=== PATIENT | female | born 1950 | race Caucasian/White ===

== ENCOUNTER 2019-06-17 13:11 | Observation (INO) | payer MEDICARE, OTHER, SELFPAY | END 2019-06-18 13:20 | disposition home or self-care (01) | PROVIDERS: Admitting Provider Obstetrics & Gynecology; Family Provider Family Medicine; Visit Provider Obstetrics & Gynecology | DX: N95.0 Postmenopausal bleeding (principal); D25.9 Leiomyoma of uterus, unspecified; I10 Essential (primary) hypertension; E11.9 Type 2 diabetes mellitus without complications; Z79.82 Long term (current) use of aspirin; Z79.4 Long term (current) use of insulin; Z87.891 Personal history of nicotine dependence; N85.01 Benign endometrial hyperplasia | CPT/HCPCS: 36415 ×2; 36416 ×3; 58260; 80053; 81003; 82962 ×4; 85025; 85027; 86850; 86900; 86901; 88307; G0378 ×97; J0690; J1815; J1885; J2001; J2704; J2710; J3010; J3490 ×2 ==

== ENCOUNTER 2020-06-25 04:31 | Emergency (ER) | payer MEDICARE, OTHER, SELFPAY ==
[2020-06-25 04:37] VITALS: BP 179/83; PULSE 87; RESP 16; TEMP 36.8; O2SAT 96; BMI 36.3
[2020-06-25 05:01] LABS: Glucose Point of Care 67 mg/dL (70-110)
--- NOTE | 2020-06-25 05:01 | PC.NURSE ---
given orange juice in the waiting room after blood glucose check of [address] Vicente verbal order
--- NOTE | 2020-06-25 06:02 | W.ED.BACK ---
HPI - Back Pain/Injury General: Chief Complaint: Back Pain/Injury Stated Complaint: lower back pain Time Seen by Provider: 06/25/20 05:40 History of Present Illness: HPI Narrative: 70-year-old female comes in complaining of pain on the left mid and upper lumbar paraspinal area slightly laterally. She denies dysuria urgency or frequency. This pain began a day and 1/2 to 2 days ago she does not remember any precipitating event it is a little bit worse when she is in the process of laying down in the exam room however other times she states position does not seem to matter. She denies any dysuria urgency or frequency denies any hematuria. She is not had any vomiting or diarrhea. She has not had any hematochezia melena hematemesis or coffee-ground emesis she denies history of renal stones. MD elicited complaint: back pain Onset (ago): day(s) Timing: constant Severity: severe Quality: stabbing and aching Location: left flank and left lower back Radiation: none Exacerbating factors: movement, supine positioning and walking Relieving factors: immobilization and sitting upright Associated symptoms: Reports difficulty walking and myalgias; Deny abdominal pain, arthralgias, chills, change in bowel habits, dysuria, fatigue, fecal incontinence, fever(s), hematuria, nausea, numbness, syncope, tingling/numbness/burning, urinary frequency, urinary urgency, vomiting or weakness Work related injury: No Review of Systems Const: Denies: fever(s), chills or fatigue ENMT: Denies: throat pain, ear or mastoid pain, nasal discharge or nasal congestion Card: Denies: syncope Resp: Denies: dyspnea, productive cough or non-productive cough GI: Denies: abdominal pain, nausea, vomiting, fecal incontinence or change in bowel habits : Denies: dysuria, urinary urgency or hematuria Skin/Breast: Denies: rash or pruritus Neuro: Reports: difficulty walking PFSH ED PFSH: Medical History (Updated 06/25/20 @ 08:22 by Valente Sheikh DO) Ganglion cyst Ganglion cyst removal: Left third toe Surgical History History of total vaginal hysterectomy 06/17/2019- performed by Dr. Thomas at [facility] Status post hysteroscopic polypectomy 05/06/2019- per Dr. Thomas at [facility] Family History Mother Diabetes Hypertension Social History Smoking and tobacco status: former smoker Alcohol intake: never Number of children: 3 Female Reproductive History: Para: 3 Spontaneous abortions: Yes (4) Physical Exam Const: COMMON NORMALS: no acute distress GENERAL APPEARANCE: cooperative and comfortable ORIENTATION/CONSCIOUSNESS: Yes awake, Yes oriented to person, Yes oriented to place and Yes oriented to time HENMT: COMMON NORMALS: normocephalic, atraumatic and hearing grossly normal bilaterally HEAD & SCALP: normocephalic and atraumatic Neck/C-Spine: COMMON NORMALS: no JVD Resp: COMMON NORMALS: normal respiratory effort, No retractions, No use of accessory muscles and clear to auscultation bilaterally AUSCULTATION: clear to auscultation bilaterally Cardio: COMMON NORMALS: no JVD, regular rate, regular rhythm and No murmurs present (Cardio) RATE: regular rate RHYTHM: regular rhythm GI: COMMON NORMALS: Soft to palpation and No hepatosplenomegaly present AUSCULTATION: Yes normoactive bowel sounds PALPATION: Yes Soft to palpation, No Tenderness to palpation present (GI), No Guarding due to palpation present (GI) and Yes No hepatosplenomegaly present Extremity: COMMON NORMALS: normal to inspection, capillary refill normal, no clubbing, cyanosis or edema, no calf tenderness and no pedal edema Neuro: SENSORIUM/ORIENTATION: Yes oriented to person, Yes oriented to place and Yes oriented to time Skin: COMMON NORMALS: no rashes or lesions noted GENERAL SKIN EXAM: no rashes or lesions noted Course Vital Signs: Vital signs: Vital Signs Temperature 98.2 F 06/25/20 04:37 Pulse Rate 76 06/25/20 06:41 Respiratory Rate 18 06/25/20 06:44 Blood Pressure 154/87 06/25/20 06:41 Pulse Oximetry 97 06/25/20 06:44 MDM - Back Pain/Injury MDM Narrative: Medical decision making narrative: Reviewed findings with patient including imaging and lab work. She has some fairly impressive constipation and very mild hypokalemia. We will hold off with any potassium supplement her hypokalemia is very minimal and concerned about causing her stomach upset with oral potassium at this point. Her back pain is somewhat relieved there is no sign of urinary source no sign of significant abdominal pathology no fracture discharged home with diclofenac and tizanidine if not improving follow-up with primary care if they worsen significantly return to the emergency room. Can use vlzc-hvx-[id number] mag citrate or milk of magnesia for relief of constipation Lab Data: Labs: Lab Results 06/25/20 06/25/20 06/25/20 Range/Units 04:56 05:39 06:20 WBC 7.5 (4.0-10.0) 10^3/ uL RBC 4.91 (4.1-5.3) 10^6/u L Hgb 14.5 (11.5-15.3) g/dL Hct 44.2 (37.0-47.0) % MCV 90.0 (81-99) fL MCH 29.5 (28.0-34.0) pg MCHC 32.8 (30.0-36.0) g/dL RDW 12.7 (12.1-15.1) % Plt Count 295 (130-400) 10^3/c mm MPV 9.6 (7.4-10.4) fL Neut % (Auto) 59.6 % Lymph % (Auto) 26.2 % [place] % (Auto) 9.5 % Eos % (Auto) 3.5 % Baso % (Auto) 0.9 % Neut # (Auto) 4.44 (1.8-7.7) 10^3/u L Lymph # (Auto) 2.0 (0.8-4.8) 10^3/u L [place] # (Auto) 0.7 (0.2-0.9) 10^3/u L Eos # (Auto) 0.3 (0.0-0.8) 10^3/u L Baso # (Auto) 0.1 (0.0-0.1) 10^3/u L Nucleated RBC % (a uto) 0 % Nucleated RBCs # 0.0 /100WBC Sodium (136-145) mmol/L Potassium (3.5-5.1) mmol/L Chloride (98-107) mmol/L Carbon Dioxide (22-29) mmol/L Anion Gap (5-19) BUN (8-23) mg/dL Creatinine (0.5-0.9) mg/dL GFR Calculation (90-130) mL/min Glucose (65-115) mg/dL POC Glucose 67 L (70-110) mg/dL Calculated Osmolal ity (285-295) mOsm/k g Calcium (8.5-10.5) mg/dL Total Bilirubin (0.15-1.2) mg/dL AST (0-32) U/L ALT (0-33) U/L Alkaline Phosphata se (35-105) IU/L Total Protein (6.6-8.7) g/dL Albumin (3.5-5.2) g/dL Globulin (1.3-4.6) g/dL Urine Color Straw (Yellow) Urine Appearance Sl hazy (CLEAR) Urine pH 7 (5-7) Ur Specific Gravit y 1.005 (1.005-1.030) Urine Protein Neg (Negative) Urine Glucose (UA) Norm (Normal) Urine Ketones Negative (Negative) Urine Blood Neg (Negative) Urine Nitrate Negative (Negative) Urine Bilirubin Neg (Negative) Urine Urobilinogen Norm (Negative) mg/dL Ur Leukocyte Sabrina ase Negative (Negative) Urine RBC 0-4 H (0-2) /hpf Urine WBC 0-4 H (0-5) /hpf Ur Squamous Epith Cells 5-10 H (0-5) /hpf Amorphous Sediment Not Reportable Urine Bacteria 1+ H (NONE) /hpf 06/25/20 06/25/20 Range/Units 06:20 07:46 WBC (4.0-10.0) 10^3/ uL RBC (4.1-5.3) 10^6/u L Hgb (11.5-15.3) g/dL Hct (37.0-47.0) % MCV (81-99) fL MCH (28.0-34.0) pg MCHC (30.0-36.0) g/dL RDW (12.1-15.1) % Plt Count (130-400) 10^3/c mm MPV (7.4-10.4) fL Neut % (Auto) % Lymph % (Auto) % [place] % (Auto) % Eos % (Auto) % Baso % (Auto) % Neut # (Auto) (1.8-7.7) 10^3/u L Lymph # (Auto) (0.8-4.8) 10^3/u L [place] # (Auto) (0.2-0.9) 10^3/u L Eos # (Auto) (0.0-0.8) 10^3/u L Baso # (Auto) (0.0-0.1) 10^3/u L Nucleated RBC % (a uto) % Nucleated RBCs # /100WBC Sodium 140 (136-145) mmol/L Potassium 3.3 L (3.5-5.1) mmol/L Chloride 101 (98-107) mmol/L Carbon Dioxide 28 (22-29) mmol/L Anion Gap 14.3 (5-19) BUN 14 (8-23) mg/dL Creatinine 0.6 (0.5-0.9) mg/dL GFR Calculation 99.4 (90-130) mL/min Glucose 84 (65-115) mg/dL POC Glucose 49 L (70-110) mg/dL Calculated Osmolal ity 290 (285-295) mOsm/k g Calcium 9.3 (8.5-10.5) mg/dL Total Bilirubin 0.3 (0.15-1.2) mg/dL AST 25 (0-32) U/L ALT 32 (0-33) U/L Alkaline Phosphata se 108 H (35-105) IU/L Total Protein 7.0 (6.6-8.7) g/dL Albumin 4.0 (3.5-5.2) g/dL Globulin 3.0 (1.3-4.6) g/dL Urine Color (Yellow) Urine Appearance (CLEAR) Urine pH (5-7) Ur Specific Gravit y (1.005-1.030) Urine Protein (Negative) Urine Glucose (UA) (Normal) Urine Ketones (Negative) Urine Blood (Negative) Urine Nitrate (Negative) Urine Bilirubin (Negative) Urine Urobilinogen (Negative) mg/dL Ur Leukocyte Sabrina ase (Negative) Urine RBC (0-2) /hpf Urine WBC (0-5) /hpf Ur Squamous Epith Cells (0-5) /hpf Amorphous Sediment Urine Bacteria (NONE) /hpf Discharge Plan Discharge Patient Disposition: Home Clinical Impression: Strain of lumbar region, Constipation Condition: Stable Prescriptions: New tizanidine 2 mg capsule 2 mg PO Q8H PRN (Reason: muscle spasticity) Qty: 20 RF: 0 diclofenac sodium 75 mg tablet,delayed release (DR/EC) 75 mg PO Q12H PRN (Reason: pain) Qty: 20 RF: 0 No Action metformin 500 mg tablet 1,000 mg PO BID RF: 0 Humulin 70/30 U-100 Insulin 100 unit/mL (70-30) suspension See Rx Instructions SUBCUT .COMPLEX RF: 0 lovastatin 10 mg tablet See Rx Instructions PO DAILY RF: 0 hydrochlorothiazide 25 mg tablet 25 mg PO DAILY RF: 0 levothyroxine 150 mcg capsule 150 mcg PO DAILY RF: 0 Discharge Orders: Discharge ED (Routine); Ordered 06/25/20 Ordered By: Valente hSeikh Referrals: Abdiel Salmon Jr, MD [Primary Care Provider] - Discharge Diet: Usual diet Discharge Activity: Increase activity as tolerated Activity Restrictions/Additional Instructions: Zybo-mxj-lzonoie laxative such as milk of magnesia or mag citrate to relieve constipation. If back pain is not improving in the next several days follow-up with primary care doctor return if has significant worsening or changes symptoms Coding Level of Care Code ED Airplane Dispatch Clerk for Luis Fwd Exam Comprehensive
--- NOTE | 2020-06-25 06:03 | XRR_ITS ---
PROCEDURE INFORMATION: Exam: XR Chest, 1 View Exam date and time: 06/25/2020 6:04 AM Age: 70 years old Clinical indication: Other: Back pain; Additional info: Dyspnea/cough TECHNIQUE: Imaging protocol: XR of the chest Views: 1 view. COMPARISON: CR Chest 1 [place] [id number] 10/23/2016 1:17 AM FINDINGS: Lungs: Unremarkable. No consolidation. Pleural space: Unremarkable. No pleural effusion. No pneumothorax. Heart/Mediastinum: Unremarkable. No cardiomegaly. Bones/joints: Degenerative change of the spine. XR/XR chest 1V portable [id number] IMPRESSION: No acute findings.
[2020-06-25 06:12] LABS: Bilirubin Urine Neg (Negative); Blood Urine Neg (Negative); Glucose Urine UA Norm (Normal); Ketones Urine Negative (Negative); Leukocyte Esterase Urine Negative (Negative); Nitrate Urine Negative (Negative); Protein Urine Neg (Negative); Specific Gravity, Urine 1.005 (1.005-1.030); Urine Appearance SL Hazy (CLEAR); Urine Color Straw (Yellow); Urobilinogen Urine Norm (Negative); pH Urine 7 (5-7)
[2020-06-25 06:13] LABS: Add Urine Culture? No; Bacteria Urine 1+ /hpf; RBC Urine 0-4 /hpf (0-2); WBC Urine 0-4 /hpf (0-5)
[2020-06-25 06:41] VITALS: BP 154/87; PULSE 76; RESP 18; O2SAT 96
[2020-06-25 06:44] VITALS: RESP 18; O2SAT 97
[2020-06-25] MEDS: morphine 4 mg/mL SDV 1 mL IVP (06:44)
[2020-06-25 06:45] LABS: Basophils # 0.1 10^3/uL (0.0-0.1); Basophils % 0.9 %; Eosinophils # 0.3 10^3/uL (0.0-0.8); Eosinophils % 3.5 %; Hematocrit 44.2 % (37.0-47.0); Hemoglobin 14.5 g/dL (11.5-15.3); Lymphocytes % 26.2 %; Mean Corpuscular HGB Conc 32.8 g/dL (30.0-36.0); Mean Corpuscular Hemoglobin 29.5 pg (28.0-34.0); Mean Platelet Volume 9.6 fL (7.4-10.4); Monocytes # 0.7 10^3/uL (0.2-0.9); Monocytes % 9.5 %; Neutrophils # 4.44 10^3/uL (1.8-7.7); Neutrophils % 59.6 %; Nucleated Red Blood Cells % 0 %; Platelet Count 295 10^3/cmm (130-400); Red Blood Count 4.91 10^6/uL (4.1-5.3); Red Cell Distribution Width 12.7 % (12.1-15.1); White Blood Count 7.5 10^3/uL (4.0-10.0)
[2020-06-25] MEDS: ondansetron 2 mg/ML SDV 2 mL 4 MG IVP (06:45)
[2020-06-25] MEDS: sodium chloride 0.9% 1,000 ML 999 ML IV (06:45)
[2020-06-25] MEDS: orphenadrine 30 mg/mL Inj 2 mL 60 MG IVP (06:45)
[2020-06-25 06:57] LABS: Alanine Aminotransferase 32 U/L (0-33); Alkaline Phosphatase 108 IU/L (35-105); Anion Gap 14.3 (5-19); Aspartate Amino Transferase 25 U/L (0-32); Blood Urea Nitrogen 14 mg/dL (8-23); Calcium 9.3 mg/dL (8.5-10.5); Carbon Dioxide 28 mmol/L (22-29); Chloride 101 mmol/L (98-107); Glomerular Filtration Rate 99.4 mL/min (90-130); Glucose 84 mg/dL (65-115); Osmolality Calculated 290 mOsm/kg (285-295); Potassium 3.3 mmol/L (3.5-5.1); Sodium 140 mmol/L (136-145); Total Bilirubin 0.3 mg/dL (0.15-1.2)
--- NOTE | 2020-06-25 07:14 | CTR_ITS ---
PROCEDURE INFORMATION: Exam: CT Abdomen And Pelvis With Contrast Exam date and time: 06/25/2020 7:16 AM Age: 70 years old Clinical indication: Abdominal pain; Prior surgery; Surgery type: Hyster; Additional info: Abd pain TECHNIQUE: Imaging protocol: Computed tomography of the abdomen and pelvis with intravenous contrast. Radiation optimization: All CT scans at this facility use at least one of these dose optimization techniques: automated exposure control; mA and/or kV adjustment per patient size (includes targeted exams where dose is matched to clinical indication); or iterative reconstruction. Contrast material: OMNI 300; Contrast volume: 95 ml; Contrast route: INTRAVENOUS (IV); COMPARISON: US pelvic with transvaginal 03/16/2019 2:09 PM RADIATION DOSE METRICS: Total DLP (mGy-cm): 1694.06 FINDINGS: Liver: Fatty infiltration of the liver. Gallbladder and bile ducts: Normal. No calcified stones. No ductal dilation. Pancreas: Normal. No ductal dilation. Spleen: Normal. No splenomegaly. Adrenal glands: Normal. No mass. Kidneys and ureters: Normal. No hydronephrosis. Stomach and bowel: Prominent colonic fecal debris. Appendix: No evidence of appendicitis. Intraperitoneal space: Unremarkable. No free air. No significant fluid collection. Vasculature: Calcified abdominal aorta. Lymph nodes: Unremarkable. No enlarged lymph nodes. Urinary bladder: Unremarkable as visualized. Reproductive: Postoperative hysterectomy. Bones/joints: Unremarkable. No acute fracture. Soft tissues: Unremarkable. CT/CT abdomen pelvis w con* [id number] IMPRESSION: 1. Fatty infiltration of the liver. 2. Large volume colonic fecal debris. Radiation Dose CTDIVOL = (mGy): DLP = 1694.06 (mGy-cm)
[2020-06-25] MEDS: iohexol 300 mg/mL 100 mL Btl IV (07:32)
[2020-06-25 07:51] LABS: Glucose Point of Care 49 mg/dL (70-110)
[2020-06-25 08:57] VITALS: BP 156/89; PULSE 86; RESP 18; O2SAT 94
== END 2020-06-25 08:58 | disposition home or self-care (01) ==
PROVIDERS: Emergency Medicine; Emergency Provider Family Medicine; PCP Family Medicine
DX: S39.012A Strain of muscle, fascia and tendon of lower back, initial encounter (principal); K59.00 Constipation, unspecified; Z79.4 Long term (current) use of insulin; Z87.891 Personal history of nicotine dependence; X58.XXXA Exposure to other specified factors, initial encounter
CPT/HCPCS: 12345; 36416; 71045; 74177; 80053; 81001; 82962; 85025; 96361; 96374; 96375; 99282; 99283; J2270; J2360; J2405; J7030; Q9967

== ENCOUNTER 2020-11-09 10:40 | Outpatient (CLI) | payer MEDICARE, OTHER, SELFPAY ==
--- NOTE | 2020-11-09 10:46 | MM_ITS ---
WS: [id number] BILATERAL DIGITAL SCREENING MAMMOGRAPHY WITH CAD CLINICAL INFORMATION: SCREENING HISTORY: Screening mammogram. No current complaints. COMPARISON: TECHNIQUE: Bilateral CC and MLO views. FINDINGS: Scattered fibroglandular densities bilaterally. Stable 7 mm ovoid asymmetry mid depth left breast is unchanged. No suspicious focal mass, asymmetry, calcifications, or architectural distortion. No evide nce of malignancy. MM/[place] [id number] IMPRESSION: BI-RADS: 2-Benign FOLLOW UP: 1 Year Follow-up Recommend return to annual screening mammography.
== END 2020-11-09 10:41 | disposition home or self-care (01) ==
LOC: RADSHAW 10:44
PROVIDERS: PCP Family Medicine; Visit Provider Family Medicine
DX: Z12.31 Encounter for screening mammogram for malignant neoplasm of breast (principal)
CPT/HCPCS: 77067

== ENCOUNTER 2022-08-28 14:34 | Outpatient (CLI) | payer MEDICARE, OTHER, SELFPAY ==
--- NOTE | 2022-08-28 14:40 | MM_ITS ---
WS: [id number] BILATERAL 3D TOMOSYNTHESIS DIGITAL SCREENING MAMMOGRAPHY WITH CAD CLINICAL INFORMATION: SCREENING HISTORY: Screening mammogram. No current complaints. COMPARISON: November 09, 2020 TECHNIQUE: Bilateral CC and MLO views. FINDINGS: Scattered fibroglandular densities bilaterally. Stable 7 mm ovoid asymmetry in the mid LEFT breast. Progressed spiculated asymmetric density measuring 10 mm mid depth RIGHT breast. This is near the 6 o r 12 clock position. This appears closer to 6 clock position on the tomographic views. Recommend furt her evaluation with diagnostic mammography and ultrasound. MM/[place] [id number] IMPRESSION: BI-RADS: 2-Benign FOLLOW UP: 1 Year Follow-up Recommend further evaluation RIGHT breast with diagnostic mammography and ultra sound.
== END 2022-08-28 14:35 | disposition home or self-care (01) ==
LOC: RAD 14:37
PROVIDERS: PCP Family Medicine; Visit Provider Family Medicine
DX: Z12.31 Encounter for screening mammogram for malignant neoplasm of breast (principal)
CPT/HCPCS: 77063; 77067

== ENCOUNTER 2022-09-26 13:09 | Outpatient (CLI) | payer MEDICARE, OTHER, SELFPAY ==
--- NOTE | 2022-09-26 13:26 | MM_ITS ---
WS: [id number] RIGHT 3D TOMOSYNTHESIS DIGITAL MAMMOGRAPHY WITH CAD CLINICAL INFORMATION: ABNORMAL MAMMO HISTORY: Additional views COMPARISON: August 28, 2022 TECHNIQUE: 3 views of the right breast were obtained. FINDINGS: Scattered fibroglandular densities of the right breast. Again seen is the small spiculated asymmetric density 10 millimeters mid depth RIGHT breast at the 6 clock position. This persists on spot nieves farhan views. Ultrasound described below. ULTRASOUND BREAST RIGHT TECHNIQUE: Ultrasound right breast focused area of concern. CLINICAL INFORMATION: ABNORMAL MAMMO FINDINGS: Ultrasound RIGHT breast at the 6:00 position at the areola. There is a hypoechoic solid lesion taller than wide measuring 9.6 x 5.4 x 6.8 mm. This has a suspicious appearance and recommend further evalu ation with ultrasound-guided biopsy. No suspicious lymph nodes in the RIGHT axilla. MM/[place] [id number] IMPRESSION: BI-RADS: 4-Suspicious Finding-Biopsy Should Be Considered FOLLOW UP: US Guided Biopsy Recommended RECOMMEND ULTRASOUND-GUIDED BIOPSY RIGHT BREAST NODULE
== END 2022-09-26 13:10 | disposition home or self-care (01) ==
PROVIDERS: PCP Family Medicine; Visit Provider Family Medicine
DX: R92.8 Other abnormal and inconclusive findings on diagnostic imaging of breast (principal); N63.15 Unspecified lump in the right breast, overlapping quadrants
CPT/HCPCS: 76642; 77061; G0279

== ENCOUNTER 2022-10-10 12:21 | Outpatient (CLI) | payer MEDICARE, OTHER, SELFPAY ==
--- NOTE | 2022-10-10 12:29 | US_ITS ---
WS: [id number] ULTRASOUND-GUIDED RIGHT BREAST BIOPSY HISTORY: LESION ON R BREAST COMPARISON: 09/26/2022 and 08/28/2022 Procedure, risks and complications are explained to the patient. Medications are reviewed. Consent is obtained. The mass in the RIGHT breast is localized with ultrasound. Mass localizes 6:00 at the areolar. Skin i s cleansed with ChloraPrep and anesthetized with 1% buffered lidocaine. Small dermatome is made. Unde r sterile conditions mass is biopsied with a 14-gauge Achieve needle. Multiple core biopsies are perf ormed. Material placed in formalin and sent to pathology for review. No complications encountered. Breast tissue marker (Bard ultrasound enhanced ribbon): Single. Patient left the radiology suite with no complications. Patient is instructed to return to [facility] concerns. US/[place] [id number] IMPRESSION: 1. Uncomplicated core needle biopsy RIGHT breast mass at 6:00. PATHOLOGY: Invasive ductal carcinoma, moderately differentiated. Breast profile will be reported separately. RECOMMENDATION: Follow-up with oncology and breast surgeon.
[2022-10-16 05:38] LABS: Breast Profile ER,PR,HER2,Ki-6 See Report
== END 2022-10-10 12:22 | disposition home or self-care (01) ==
LOC: RAD 12:22
PROVIDERS: PCP Family Medicine; Visit Provider Family Medicine
DX: C50.811 Malignant neoplasm of overlapping sites of right female breast (principal); R92.8 Other abnormal and inconclusive findings on diagnostic imaging of breast
CPT/HCPCS: 19083; 88305; 88361; 88374

== ENCOUNTER 2022-12-24 12:17 | Oncology outpatient (recurring) (ONCR) | payer MEDICARE, OTHER, SELFPAY | END 2022-12-28 23:59 | disposition home or self-care (01) | PROVIDERS: PCP Family Medicine; Visit Provider Radiology Radiation Oncology | DX: C50.811 Malignant neoplasm of overlapping sites of right female breast (principal); Z17.0 Estrogen receptor positive status [ER+]; C77.3 Secondary and unspecified malignant neoplasm of axilla and upper limb lymph nodes; Z87.891 Personal history of nicotine dependence | CPT/HCPCS: 99205 ==

== ENCOUNTER 2023-01-14 15:03 | Outpatient (CLI) | payer MEDICARE, OTHER, SELFPAY ==
--- NOTE | 2023-01-14 15:30 | XR_ITS ---
WS: [id number] SCREENING DEXA SCAN [facility] CLINICAL INFORMATION: baseline COMPARISON: 2019 FINDINGS: The L1-L4 bone mineral density measures 1.358 g/cm2. This corresponds to a T score score of 1.5 and Z score of 2.0. Left femoral neck bone mineral density measures 1.171 g/cm2. This corresponds to a T score of 1.3 and Z score of 2.0. Right femoral neck bone mineral density measures 1.141 g/cm2. This corresponds to a T score 1.1of and Z score of 1.7. Mean femoral neck bone mineral density measures 1.156 g/cm2. This corresponds to a T score of 1.2 and Z score of 1.9. XR/XR DEXA axial skeleton* [id number] IMPRESSION: Normal bone mineralization lumbar spine. Normal bone mineralization femoral nec ks. Patient's FRAX calculated 10 year probability for major osteoporotic fracture i s 7.0 % and osteoporotic hip fracture is 0.5%. Bone mineral density in the lumbar spine has increased 6.8% since 2019. Bone mineral density femoral necks increased 3.2% since 2019.
== END 2023-01-14 15:04 | disposition home or self-care (01) ==
PROVIDERS: PCP Family Medicine; Visit Provider Internal Medicine Medical Oncology
DX: C50.811 Malignant neoplasm of overlapping sites of right female breast (principal); Z78.0 Asymptomatic menopausal state
CPT/HCPCS: 77080

== ENCOUNTER 2023-01-28 13:38 | Oncology outpatient (recurring) (ONCR) | payer MEDICARE, OTHER, SELFPAY ==
--- NOTE | 2023-01-10 11:11 | N.ONRAD NP_ITS ---
Radiation Oncology Consultation Patient Name: Marbella Yeh Date of : 1950 Date of Service: 01/10/2023 Attending Physician: Arnold Link M.D. Marbella Yeh was seen in consultation this morning for consideration of adjuvant breast radiotherapy in the management of breast cancer. A bilateral screening mammogram ordered on August 28, 2022 identified a 1 cm spiculated density in the right breast. A diagnostic tomosynthesis mammogram completed on September 26, 2022 confirmed the density. Ultrasonography described a hypoechoic lesion measuring 9.6 mm x 5.4 mm x 6.8 mm. An ultrasound-guided right breast biopsy obtained on October 10, 2022 diagnosed a grade 2 invasive ductal carcinoma. The breast cancer prognostic profile reported estrogen receptor (95%) and progesterone receptor positivity (80%) but negative for HER-2 overexpression (IHC 1+; HER-2 ratio 1.6). The Ki-67 was 8%. An MRI of the breasts described the biopsy-proven enhancing mass within the right breast. A right needle-localized lumpectomy with axillary sentinel lymph node biopsy was performed by Trae Nair M.D. on November 15, 2022. The pathology report confirmed a 2 cm grade 2 invasive ductal carcinoma. All surgical margins were uninvolved by malignancy. A total of two sentinel lymph nodes were harvested with one node harboring metastatic disease. The lymph node measured 0.7 cm without extranodal extension present. The Oncotype DX breast recurrence score was 14. The patient was evaluated for adjuvant breast radiotherapy. I discussed with Ms. Yeh the [place] [employer] on Cancer staging for breast cancer and specifically the patient's pathological stage IA (T1cN1a) specific to her breast cancer diagnosis and the National Comprehensive Cancer Network Guidelines recommending adjuvant breast and regional elizabeth radiotherapy. I also reviewed the classic studies by the [place] [employer] and the Early Breast Cancer Trialists??? Collaborative Group. She is aware that these studies demonstrated an overall survival improvement in patients treated with post-mastectomy radiotherapy with extrapolation to patients electing lumpectomy. I would endorse a five week course of adjuvant right breast and regional lymph node radiotherapy. A computed tomographic radiotherapy planning scan with contrast in the treatment position will be acquired to identify the clinical tumor volumes prior to beginning treatment. The potential toxicities of breast and regional lymph node irradiation were canvassed. The patient has verbalized understanding would like to proceed as recommended. The patient's medical treatment plan was discussed with Federico Arellano M.D. Signed by: Dr. Arnold Link 01/10/2023 11:09:41 AM
--- NOTE | 2023-01-22 14:31 | ONCRAD TMN_ITS ---
Radiation Oncology Weekly Treatment Management Patient: Rao Santiago MR#: [id number] : 1950> Attending Physician: Emir Hameed Date of Service: 01/22/2023 Referring Physician(s) : Lowell Jiang M.D. Diagnosis: C50.411 - Malignant neoplasm of upper-outer quadrant of right female breast, Diagnosed 10/10/2022 (Active) Stage IA, T1c, pN1a, M0, G2, HER2 Neg, ER Pos, AL Radiotherapy to date: Course: RT Breast 2022. Treatment Site: RT [id number]. Ref. ID: R [id number], Energy: 15X/6X, Dose/Fx (cGy): 200, #Fx: 5 / 25, Dose Correction (cGy): 0, Total Dose (cGy): 1,000, Start Date: 01/16/2023, Elapsed Days: 6 Course: RT Breast 2022, Treatment Site: SCLV 50Gy, Ref. ID: [id number] 50Gy, Energy: 15X/6X, Dose/Fx (cGy): 200, #Fx: 25, Dose Correction (cGy): 0, Total Dose (cGy): 1,000, Start Date: 01/16/2023, Elapsed Days: 6 Reason for visit: The patient is being seen today as part of their regularly scheduled weekly on treatment visits to assess for acute toxicities from radiotherapy. Review of Systems: She is tolerating treatment well. She has no skin complaints. No breast pain. Performance status stable. Appetite normal. Vital Signs: Performed on 01/22/2023 1:49 PM BMI - 37.059 kg/m2 (high), Height - 66 in, Weight - 229.6 lbs, Temperature - 96.6 f, Pulse - 89 /min, Respiration - 18 /min, O2 Sat - 98 %, Pain - 0, Fatigue - 0 and BP - 144/ 85 mm(hg)(high/). Physical Exam: She has no skin reaction. No edema of the breast. She has a good range of motion in the right arm. No lymphedema. Imaging: Radiation therapy imaging related to accurate target localization (i.e. KV, MV and CBCT) was reviewed. Appropriate changes, if any, were made to ensure treatment accuracy. Plan: Continue treatment per plan. No questions. Signed by: Emir Hameed 01/22/2023 2:30:07 PM
[2023-01-25 09:37] VITALS: BP 147/81; PULSE 103; RESP 18; TEMP 35.9; O2SAT 96
[2023-01-25 09:50] LABS: Basophils # 0.1 10^3/uL (0.0-0.1); Basophils % 0.7 %; Eosinophils # 0.2 10^3/uL (0.0-0.8); Eosinophils % 2.2 %; Hemoglobin 14.9 g/dL (11.5-15.3); Lymphocytes # 1.3 10^3/uL (0.8-4.8); Lymphocytes % 17.7 %; Mean Corpuscular HGB Conc 33.9 g/dL (30.0-36.0); Mean Corpuscular Hemoglobin 30.3 pg (28.0-34.0); Mean Corpuscular Volume 89.4 fl (81-99); Mean Platelet Volume 9.2 fL (7.4-10.4); Monocytes # 0.6 10^3/uL (0.2-0.9); Monocytes % 7.8 %; Neutrophils # 5.21 10^3/uL (1.8-7.7); Neutrophils % 71.3 %; Nucleated Red Blood Cells % 0 %; Platelet Count 324 10^3/cmm (130-400); Red Blood Count 4.92 10^6/uL (4.1-5.3); Red Cell Distribution Width 13.4 % (12.1-15.1); White Blood Count 7.3 10^3/uL (4.0-10.0)
[2023-01-25 10:14] LABS: Alanine Aminotransferase 25 U/L (0-33); Albumin Level 4.1 g/dL (3.5-5.2); Alkaline Phosphatase 101 U/L (35-105); Anion Gap 15.6 (5-19); Aspartate Amino Transferase 20 U/L (0-32); Blood Urea Nitrogen 15 mg/dL (8-23); Calcium 9.7 mg/dL (8.5-10.5); Carbon Dioxide 27 mmol/L (22-29); Chloride 102 mmol/L (98-107); Globulin 2.5 g/dL (1.3-4.6); Glomerular Filtration Rate 98.8 mL/min (90-130); Glucose 86 mg/dL (65-115); Osmolality Calculated 292 mOsm/kg (285-295); Potassium 3.6 mmol/L (3.5-5.1); Sodium 141 mmol/L (136-145); Total Bilirubin 0.4 mg/dL (0.15-1.2); Total Protein 6.6 g/dL (6.6-8.7)
== END 2023-01-28 23:59 | disposition home or self-care (01) ==
PROVIDERS: Internal Medicine Medical Oncology; PCP Family Medicine; Visit Provider Specialist
DX: Z51.0 Encounter for antineoplastic radiation therapy (principal); C50.811 Malignant neoplasm of overlapping sites of right female breast; Z17.0 Estrogen receptor positive status [ER+]; Z78.0 Asymptomatic menopausal state; Z87.891 Personal history of nicotine dependence
CPT/HCPCS: 36415; 77290; 77295; 77300; 77321; 77334; 77336; 77387; 77412; 80053; 85025; 99024; 99205; 99214

== ENCOUNTER 2023-02-19 13:36 | Oncology outpatient (recurring) (ONCR) | payer MEDICARE, OTHER, SELFPAY ==
--- NOTE | 2023-01-29 14:22 | ONCRAD TMN_ITS ---
Radiation Oncology Treatment Management Note Patient Name: Marbella Yeh Date of : 1950 Date of Service: 01/29/2023 Attending Physician: Arnold Link M.D. Marbella Yeh is a 72 year-old white female diagnosed with pathological stage 1A (T1cN1a) breast cancer. A bilateral screening mammogram ordered on August 28, 2022 identified a 1 cm spiculated density in the right breast. A diagnostic tomosynthesis mammogram completed on September 26, 2022 confirmed the density. Ultrasonography described a hypoechoic lesion measuring 9.6 mm x 5.4 mm x 6.8 mm. An ultrasound-guided right breast biopsy obtained on October 10, 2022 diagnosed a grade 2 invasive ductal carcinoma. The breast cancer prognostic profile reported estrogen receptor (95%) and progesterone receptor positivity (80%) but negative for HER-2 overexpression (IHC 1+; HER-2 ratio 1.6). The Ki-67 was 8%. An MRI of the breasts described the biopsy-proven enhancing mass within the right breast. A right needle-localized lumpectomy with axillary sentinel lymph node biopsy was performed by Trae Nair M.D. on November 15, 2022. The pathology report confirmed a 2 cm grade 2 invasive ductal carcinoma. All surgical margins were uninvolved by malignancy. A total of two sentinel lymph nodes were harvested with one node harboring metastatic disease. The lymph node measured 0.7 cm without extranodal extension present. The Oncotype DX breast recurrence score was 14. The patient was evaluated for adjuvant breast radiotherapy. She has received 20 Gy of a prescribed 50 Gy delivered with a 3D conformal radiotherapy plan utilizing opposed tangential portal carlson matched to supraclavicular fossa and PAB carlson. Upon review of systems, she denied any breast complaints to radiotherapy. On physical examination, the patient weighed 229 lbs. Her temperature was 96.5 ???F and the blood pressure was 143/83 mmHg. Her pulse was 92 bpm and her respiratory rate was 18. There was no erythema within the treatment carlson of the right breast. Continue breast and regional lymph node irradiation as planned. Signed by: Dr. Arnold Link 01/29/2023 2:21:20 PM
--- NOTE | 2023-02-05 14:03 | ONCRAD TMN_ITS ---
Radiation Oncology Weekly Treatment Management Patient: Marbella Yeh MR#: [id number] : 1950> Attending Physician: Ethan Parker Date of Service: 02/05/2023 Referring Physician(s) : Lowell Jiang M.D. 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 ID: [id number], Energy: 15X/6X, Dose/Fx (cGy): 200, #Fx: 15 / 25, Dose Correction (cGy): 0, Total Dose (cGy): 3,000, Start Date: 01/16/2023, Elapsed Days: 20 RT Breast 2022, Treatment Site: SCLV 50Gy, Ref. ID: SCLV 50Gy, Energy: 15X/6X, Dose/Fx (cGy): 200, #Fx: / 25, Dose Correction (cGy): 0, Total Dose (cGy): 3,000, Start Date: 01/16/2023, Elapsed Days: 20 Reason for visit: The patient is being seen today as part of their regularly scheduled weekly on treatment visits to assess for acute toxicities from radiotherapy. Review of Systems: Patient notes a slight rash on the upper medial portion of her right breast. She is using lotion as indicated. She has mild fatigue but is able to rest as needed. Vital Signs: Performed on 02/05/2023 2:00 PM BMI ??? 36.865 kg/m2 (high), Height - 66 in, Weight ??? 228.4 lbs, Temperature - 96.9 f, Pulse - 82 /min (high), Respiration - 18 /min, O2 Sat - 97 %, Pain - 0, Fatigue - 0 and BP - 136/ 64 mm(hg). Physical Exam: Slight erythematous rash on the medial upper portion of the right breast. Skin is slightly pink with no evidence of moist desquamation or lymphedema. Imaging: Radiation therapy imaging related to accurate target localization (i.e. KV, MV and CBCT) was reviewed. Appropriate changes, if any, were made to ensure treatment accuracy. Plan: Patient has been advised that she can also apply hydrocortisone cream to the area of rash. Continue prescribed treatment. Signed by: Ethan Parker 02/05/2023 2:35:44 PM
--- NOTE | 2023-02-12 14:38 | ONCRAD TMN_ITS ---
Radiation Oncology Weekly Treatment Management Patient: Marbella Yeh MR#: [id number] : 1950> Attending Physician: Duncan Marroquin Date of Service: 02/12/2023 Referring Physician(s) : Lowell Jiang M.D. Diagnosis: C50.411 - Malignant neoplasm of upper-outer quadrant of right female breast, Diagnosed 10/10/2022 (Active) Stage IA, T1c, pN1a, M0, G2, HER2 Neg, ER Pos, [place] Radiotherapy to date: Course: RT Breast 2022, Treatment Site: RT [id number], Ref. ID: [id number], Energy: 15X/6X, Dose/Fx (cGy): 200, #Fx: 20 / 25, Dose Correction (cGy): 0, Total Dose (cGy): 4,000, Start Date: 01/16/2023, Elapsed Days: 27 RT Breast 2022, Treatment Site: SCLV 50Gy, Ref. ID: SCLV 50Gy, Energy: 15X/6X, Dose/Fx (cGy): 200, #Fx: 20 / 25, Dose Correction (cGy): 0, Total Dose (cGy): 4,000, Start Date: 01/16/2023, Elapsed Days: 27 Reason for visit: The patient is being seen today as part of their regularly scheduled weekly on treatment visits to assess for acute toxicities from radiotherapy. Review of Systems: Using OTC hydrocortisone and aloe vera moisturizer. Active with quilting. Minimal breast discomfort. Vital Signs: Performed on 02/12/2023 1:49 PM BMI - 35.832 kg/m2 (high), Height - 66 in, Weight - 222 lbs, Temperature - 96 f, Pulse - 86 /min, Respiration - 20 /min, O2 Sat - 97 %, Pain - 0, Fatigue - 0 and BP - 134/ 69 mm(hg). Physical Exam: Moderate generalized breast erythema. No desquation. Imaging: Radiation therapy imaging related to accurate target localization (i.e. KV, MV and CBCT) was reviewed. Appropriate changes, if any, were made to ensure treatment accuracy. Plan: Good tolerance of treatment. Continue treatment as planned. Signed by: Duncan Marroquin 02/12/2023 2:36:02 PM
--- NOTE | 2023-02-19 22:59 | ONCRAD TMN_ITS ---
Radiation Oncology Weekly Treatment Management/Treatment Summary Patient: Marbella Yeh MR#: [id number] : 1950> Attending Physician: Duncan Marroquin Date of Service: 02/19/2023 Referring Physician(s) : Lowell Jiang M.D. Diagnosis: C50.411 - Malignant neoplasm of upper-outer quadrant of right female breast, Diagnosed 10/10/2022 (Active) Stage IA, T1c, pN1a, M0, G2, HER2 Neg, ER Pos, [place] Radiotherapy to date: Course: RT Breast 2022, Treatment Site: RT [id number], Ref. ID: R [id number], Energy: 15X/6X, Dose/Fx (cGy): 200, #Fx: 25 / 25, Dose Correction (cGy): 0, Total Dose (cGy): 5,000, Start Date: 01/16/2023, End Date: 02/19/2023, Elapsed Days: 34 RT Breast 2022, Treatment Site: SCLV 50Gy, Ref. ID: SCLV 50Gy, Energy: 15X/6X, Dose/Fx (cGy): 200, #Fx: 25 / 25, Dose Correction (cGy): 0, Total Dose (cGy): 5,000, Start Date: 01/16/2023, End Date: 02/19/2023, Elapsed Days: 34 Reason for visit: The patient is being seen today as part of their regularly scheduled weekly on treatment visits to assess for acute toxicities from radiotherapy. Review of Systems: Overall she did well with treatment. Moderate breast erythema with thin region of moist desquamation in inframammary fold. Using Vaseline and OTC hydrocortisone. She had faigue and slept more. Quilting at home. Will see Dr. Jiang in 2 weeks. Vital Signs: Performed on 02/19/2023 2:00 PM BMI - 36.671 kg/m2 (high), Height - 66 in, Weight - 227.2 lbs, Temperature - 96.8 f, Pulse - 80 /min, Respiration - 16 /min, O2 Sat - 97 %, Pain - 0, Fatigue - 3 and BP - 126/ 72 mm(hg). Physical Exam: Imaging: Radiation therapy imaging related to accurate target localization (i.e. KV, MV and CBCT) was reviewed. Appropriate changes, if any, were made to ensure treatment accuracy. Plan: Treatment well tolerated outside of band of desquamation in inframammary fold. FU with Dr. Jiang in 2 wks. We will have her return here in [address] Hameed for skin assessment as well. Telemedicine Consent Patient seen today via Telemedicine by agreement and consent of patient. Telemedicine technology used during the visit include audio and, as available, review of images. This patient encounter is appropriate and reasonable under the circumstances given the patient???s particular presentation at this time. The patient has been advised of the potential risks and limitations of this mode of treatment (including but not limited to the absence of in-person examination) and has agreed to be treated in a remote fashion in spite of them. Any and all of the patient???s/patient???s family???s questions on this issue have been answered and I have made no promises or guarantees to the patient. The patient has also been advised to contact this office for worsening conditions or problems, and seek emergency medical treatment and/or call 911 if the patient deems either necessary. Signed by: Duncan Marroquin 02/19/2023 10:57:33 PM
--- NOTE | 2023-02-21 18:57 | N.ONRD TS_ITS ---
Radiation Oncology Treatment Summary Patient: Marbella Yeh MR#: [id number] : 1950 Age: 73 Sex: Female Dictated by: Duncan Marroquin Date of Service: 02/20/2023 Referring Physician(s) : Lowell Jiang M.D. Diagnosis: C50.411 - Malignant neoplasm of upper-outer quadrant of right female breast, Diagnosed 10/10/2022 (Active) Stage IA, T1c, pN1a, M0, G2, HER2 Neg, ER Pos, [place] Radiotherapy to Date: Course: RT Breast 2022, Treatment Site: RT [id number], Ref. ID: R [id number], Energy: 15X/6X, Dose/Fx (cGy): 200, #Fx: 25 / 25, Dose Correction (cGy): 0, Total Dose (cGy): 5,000, Start Date: 01/16/2023, End Date: 02/19/2023, Elapsed Days: 34 Course: RT Breast 2022, Treatment Site: SCLV 50Gy, Ref. ID: SCLV 50Gy, Energy: 15X/6X, Dose/Fx (cGy): 200, #Fx: 25 / 25, Dose Correction (cGy): 0, Total Dose (cGy): 5,000, Start Date:, 01/16/2023, End Date: 02/19/2023, Elapsed Days: 34 Clinical Summary: The patient tolerated RT well. She developed breast erythema and moist desquamation in the infra mammary fold. This was treated with Vaseline, hydrocortisone and Aloe Vera. She had fatigue and napped more. She remained active with quilting. Plan: End of treatment today. Continue on the above medication until the skin reaction resolves. Follow up in two weeks with Dr. Jiang and Dr. Hameed. Signed by: Duncan Marroquin>02/21/2023 6:55:57 PM <<Signature on File>>
== END 2023-02-28 23:59 | disposition home or self-care (01) ==
PROVIDERS: PCP Family Medicine; Visit Provider Radiology Radiation Oncology
DX: Z51.0 Encounter for antineoplastic radiation therapy (principal); C50.811 Malignant neoplasm of overlapping sites of right female breast; Z17.0 Estrogen receptor positive status [ER+]; C77.8 Secondary and unspecified malignant neoplasm of lymph nodes of multiple regions; L59.8 Other specified disorders of the skin and subcutaneous tissue related to radiation; R53.0 Neoplastic (malignant) related fatigue; Z79.899 Other long term (current) drug therapy
CPT/HCPCS: 77336; 77387; 77412; 99024

== ENCOUNTER 2023-03-11 10:22 | Oncology outpatient (recurring) (ONCR) | payer MEDICARE, OTHER, SELFPAY ==
--- NOTE | 2023-03-06 14:45 | ONCRAD EPV_ITS ---
Radiation Oncology Established Patient Visit Patient: Rao Tyson [id number] : 1950> Age: 73> Sex: Female> Dictated by: Emir Hameed Date of Service: 03/06/2023 Referring Physician(s) : Lowell Jiang M.D. Diagnosis: C50.411 - Malignant neoplasm of upper-outer quadrant of right female breast, Diagnosed 10/10/2022 (Active) Stage IA, T1c, pN1a, M0, G2, HER2 Neg, ER Pos, [place] Radiotherapy to Date: Course: RT Breast 2022, Treatment Site: RT [id number], Ref. ID: [id number], Energy: 15X/6X, Dose/Fx (cGy): 200, #Fx: 25 / 25, Dose Correction (cGy): 0, Total Dose (cGy): 5,000, Start Date: 01/16/2023, End Date: 02/19/2023, Elapsed Days: 34 Treatment Site: SCLV 50Gy, Ref. ID: SCLV 50Gy, Energy: 15X/6X, Dose/Fx (cGy): 200, #Fx: 25 / 25, Dose Correction (cGy): 0, Total Dose (cGy): 5,000, Start Date: 01/16/2023, End Date: 02/19/2023, Elapsed Days: 34 Current History: She completed radiation 2 weeks ago. She had moist desquamation in the inframammary area. She was asked to come in for a follow-up. She still has some tenderness of the skin but she states it is improved. She has mild discomfort in the breast itself. No other problems.: Current Complaint: None. Skin check. Vital Signs: Performed on 03/06/2023 1:58 PM BMI - 37.059 kg/m2 (high), Height - 66 in, Weight - 229.6 lbs, Temperature - 96.3 f, Pulse - 91 /min, Respiration - 18 /min, O2 Sat - 94 % (low), Pain - 0, Fatigue - 0 and BP - 148/ 81 mm(hg)(high/). Physical Exam: General: Alert and oriented x 3. No acute distress NECK: Supple without supraclavicular or jugular lymphadenopathy. LUNGS: Clear to auscultation bilaterally without rales, rhonchi or wheeze. HEART: Regular rate and rhythm, normal S1 and S2 without murmur, gallop or rub. Breast: The right breast has changes of hyperpigmentation and mild erythema with mild dry desquamation. The breast is soft and nontender and has no mass, nodularity, or induration. The inframammary area is healed and there is a new layer of skin without evidence of infection. The axilla also has a new layer of skin without any evidence of infection. No palpable lymphadenopathy. There is no lymphedema of the right upper extremity. Performance Status: ECOG 0 Lab: None pending. Pathology: Primary, c50.411 - malignant neoplasm of upper-outer quadrant of right female breast, Diagnosed 10/10/2022 (active) stage ia, t1c, pn1a, m0, g2, her2 neg, er pos, pr. Imaging: See HPI Impression: Her skin is healing as anticipated. I discussed the changes that we will continue to occur with the skin of the breast with dry desquamation and gradual resolution of the hyperpigmentation. She will call if there is not continued improvement. Otherwise follow-up in 6 months. Signed by: 03/06/2023 2:44:20 PM <<Signature on File>> Time spent with patient: CPT Code: CPT Code:
== END 2023-03-30 23:59 | disposition home or self-care (01) ==
PROVIDERS: PCP Family Medicine; Visit Provider Specialist
DX: Z51.0 Encounter for antineoplastic radiation therapy (principal); C50.811 Malignant neoplasm of overlapping sites of right female breast; Z17.0 Estrogen receptor positive status [ER+]
CPT/HCPCS: 99024; 99214

== ENCOUNTER 2023-06-10 13:24 | Outpatient (CLI) | payer MEDICARE, OTHER, SELFPAY ==
--- NOTE | 2023-06-10 13:30 | MM_ITS ---
WS: [id number] RIGHT 3D TOMOSYNTHESIS DIGITAL MAMMOGRAPHY WITH CAD CLINICAL INFORMATION: ANNUAL - HX BR CA HISTORY: History of RIGHT lumpectomy. COMPARISON: 09/26/2022 TECHNIQUE: 3 views of the right breast were obtained. FINDINGS: Scattered fibroglandular densities of the right breast. Postoperative changes lumpectomy RIGHT breast with parenchymal fibrosis and surgical clips. Surgical clips RIGHT axilla. Treatment-related changes with skin thickening RIGHT breast. No suspicious focal mass, asymmetry, calcifications, or architectural distortion. No evidence of kimberley gnancy. IMPRESSION: MM/[place] [id number] BI-RADS: 2-Benign FOLLOW UP: 1 Year Follow-up Recommend return to annual diagnostic mammography.
== END 2023-06-10 13:25 | disposition home or self-care (01) ==
LOC: RAD 13:24
PROVIDERS: PCP Family Medicine; Visit Provider Family Medicine
DX: Z85.3 Personal history of malignant neoplasm of breast (principal)
CPT/HCPCS: 77061; G0279

== ENCOUNTER 2023-06-10 14:10 | Oncology outpatient (recurring) (ONCR) | payer MEDICARE, OTHER, SELFPAY ==
[2023-06-10 14:21] VITALS: BP 156/77; PULSE 101; RESP 16; TEMP 36.6; O2SAT 98
[2023-06-10 14:48] LABS: Basophils # 0.1 10^3/uL (0.0-0.1); Basophils % 0.8 %; Eosinophils # 0.3 10^3/uL (0.0-0.8); Eosinophils % 3.6 %; Lymphocytes # 0.8 10^3/uL (0.8-4.8); Lymphocytes % 9.8 %; Mean Corpuscular HGB Conc 33.3 g/dL (30-55); Mean Corpuscular Volume 90.3 fl (85-98); Mean Platelet Volume 9.5 fL (7.4-10.4); Monocytes # 0.6 10^3/uL (0.2-0.9); Monocytes % 7.6 %; Neutrophils # 6.45 10^3/uL (1.8-7.7); Nucleated Red Blood Cells % 0 %; Platelet Count 291 10^3/cmm (157-399); Red Blood Count 4.76 10^6/uL (3.85-5.65); Red Cell Distribution Width 12.7 % (12.1-15.1); White Blood Count 8.28 10^3/uL (3.29-11.43)
[2023-06-10 15:05] LABS: Alanine Aminotransferase 20 U/L (0-33); Albumin Level 4.1 g/dL (3.5-5.2); Alkaline Phosphatase 115 U/L (35-105); Aspartate Amino Transferase 19 U/L (0-32); Blood Urea Nitrogen 15 mg/dL (8-23); Calcium 9.3 mg/dL (8.5-10.5); Carbon Dioxide 28 mmol/L (22-29); Chloride 100 mmol/L (98-107); Creatinine Clr Calc Pharmacy 77.4995; Glucose 239 mg/dL (65-115); Osmolality Calculated 295 mOsm/kg (285-295); Sodium 138 mmol/L (136-145); Total Bilirubin 0.5 mg/dL (0.15-1.2); Total Protein 7.1 g/dL (6.6-8.7)
[2023-06-10 15:18] LABS: Anion Gap 13.7 (5-19); Potassium 3.7 mmol/L (3.5-5.1)
== END 2023-06-30 23:59 | disposition home or self-care (01) ==
PROVIDERS: Internal Medicine; PCP Family Medicine; Visit Provider Specialist
DX: C50.411 Malignant neoplasm of upper-outer quadrant of right female breast (principal); C50.811 Malignant neoplasm of overlapping sites of right female breast; Z17.0 Estrogen receptor positive status [ER+]; C77.8 Secondary and unspecified malignant neoplasm of lymph nodes of multiple regions; L59.8 Other specified disorders of the skin and subcutaneous tissue related to radiation; R53.0 Neoplastic (malignant) related fatigue; Z79.899 Other long term (current) drug therapy; Z85.3 Personal history of malignant neoplasm of breast
CPT/HCPCS: 36415; 77061; 80053; 85025; 99214; G0279

== ENCOUNTER 2023-12-11 08:25 | Outpatient (CLI) | payer MEDICARE, OTHER, SELFPAY ==
--- NOTE | 2023-12-11 08:45 | NM_ITS ---
WS: [id number] NUCLEAR MEDICINE BONE SCAN Radiopharmaceutical: 24.9 Tc-99m MDP mCi IV Injection site: Antecubital Postinjection imaging delay: 1 hr CLINICAL INFORMATION: BREAST CA COMPARISON: None. FINDINGS: Bone lesions: There are no osseous lesions suspicious for metastatic disease. Soft tissue contours: Normal. Kidneys: Normal. 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 NM/NM bone scan whole body* [id number] IMPRESSION: No evidence of osseous metastatic disease.
== END 2023-12-11 08:26 | disposition home or self-care (01) ==
PROVIDERS: PCP Internal Medicine; Visit Provider Internal Medicine
DX: C50.811 Malignant neoplasm of overlapping sites of right female breast (principal); M19.019 Primary osteoarthritis, unspecified shoulder; M17.0 Bilateral primary osteoarthritis of knee
CPT/HCPCS: 78306; A9561

== ENCOUNTER 2023-12-31 14:02 | Oncology outpatient (recurring) (ONCR) | payer MEDICARE, OTHER, SELFPAY ==
[2023-12-31 14:34] LABS: Basophils # 0.1 10^3/uL (0.0-0.1); Basophils % 0.7 %; Eosinophils # 0.2 10^3/uL (0.0-0.8); Eosinophils % 2.9 %; Hematocrit 41.8 % (36-47); Lymphocytes # 1.2 10^3/uL (0.8-4.8); Lymphocytes % 14.4 %; Mean Corpuscular HGB Conc 33.5 g/dL (30-55); Mean Corpuscular Hemoglobin 29.5 pg (27-33); Mean Corpuscular Volume 88.2 fl (85-98); Mean Platelet Volume 9.3 fL (7.4-10.4); Monocytes # 0.6 10^3/uL (0.2-0.9); Neutrophils # 6.17 10^3/uL (1.8-7.7); Neutrophils % 74.9 %; Nucleated Red Blood Cells % 0 %; Platelet Count 282 10^3/cmm (157-399); Red Blood Count 4.74 10^6/uL (3.85-5.65); Red Cell Distribution Width 13.1 % (12.1-15.1); White Blood Count 8.25 10^3/uL (3.29-11.43)
[2023-12-31 14:55] LABS: Albumin Level 4.2 g/dL (3.5-5.2); Alkaline Phosphatase 103 U/L (35-105); Anion Gap 15.5 (5-19); Aspartate Amino Transferase 19 U/L (0-32); Blood Urea Nitrogen 12 mg/dL (8-23); Calcium 9.7 mg/dL (8.5-10.5); Carbon Dioxide 30 mmol/L (22-29); Chloride 99 mmol/L (98-107); Globulin 2.8 g/dL (1.3-4.6); Glucose 282 mg/dL (65-115); Osmolality Calculated 300 mOsm/kg (285-295); Potassium 4.5 mmol/L (3.5-5.1); Sodium 140 mmol/L (136-145); Total Bilirubin 0.4 mg/dL (0.15-1.2)
[2023-12-31 15:05] LABS: Alanine Aminotransferase 25 U/L (0-33)
== END 2024-01-29 23:59 | disposition home or self-care (01) ==
PROVIDERS: Internal Medicine; PCP Internal Medicine; Visit Provider Specialist
DX: C50.811 Malignant neoplasm of overlapping sites of right female breast (principal)
CPT/HCPCS: 36415; 80053; 85025; 99214

== ENCOUNTER 2024-02-03 12:45 | Oncology outpatient (recurring) (ONCR) | payer MEDICARE, OTHER, SELFPAY | END 2024-03-05 09:20 | disposition home or self-care (01) | LOC: ONCMED 12:46 | PROVIDERS: PCP Internal Medicine; Visit Provider Specialist | DX: C50.811 Malignant neoplasm of overlapping sites of right female breast (principal); Z87.891 Personal history of nicotine dependence; Z92.3 Personal history of irradiation; Z79.811 Long term (current) use of aromatase inhibitors; Z17.0 Estrogen receptor positive status [ER+] | CPT/HCPCS: 99213 ==

== ENCOUNTER 2024-05-06 14:29 | Oncology outpatient (recurring) (ONCR) | payer MEDICARE, OTHER, SELFPAY | END 2024-05-30 23:59 | disposition home or self-care (01) | LOC: ONCMED 14:29 | PROVIDERS: PCP Internal Medicine; Visit Provider Specialist | DX: C50.811 Malignant neoplasm of overlapping sites of right female breast (principal); Z17.0 Estrogen receptor positive status [ER+]; Z87.891 Personal history of nicotine dependence; Z92.3 Personal history of irradiation; Z79.811 Long term (current) use of aromatase inhibitors; Z79.899 Other long term (current) drug therapy | CPT/HCPCS: 99213 ==

== ENCOUNTER 2024-06-11 14:14 | Outpatient (CLI) | payer MEDICARE, OTHER, SELFPAY ==
--- NOTE | 2024-06-11 14:30 | MM_ITS ---
WS: [id number] BILATERAL 3D TOMOSYNTHESIS DIGITAL SCREENING MAMMOGRAPHY WITH CAD CLINICAL INFORMATION: breast cancer HISTORY: RIGHT breast cancer no current complaints. COMPARISON: 2022 TECHNIQUE: Bilateral CC and MLO views. FINDINGS: Prior postoperative changes RIGHT lumpectomy with surgical clips. Associated parenchymal fi brosis. Treatment related changes RIGHT breast. RIGHT axillary clips. Scattered fibroglandular densities bilaterally. No suspicious focal mass, asymmetry, calcifications, or architectural distortion. No evidence of malignancy. MM/MM diag tomosynthesis [id number] IMPRESSION: DENSITY: There are scattered areas of fibroglandular density. BI-RADS: 2 - Benign. FOLLOW UP: 1 Year Follow-up Recommend return to annual diagnostic mammography.
== END 2024-06-11 14:15 | disposition home or self-care (01) ==
PROVIDERS: PCP Internal Medicine; Visit Provider Nurse Practitioner Family
DX: C50.811 Malignant neoplasm of overlapping sites of right female breast (principal); Z98.890 Other specified postprocedural states; N60.31 Fibrosclerosis of right breast; R92.323 Mammographic fibroglandular density, bilateral breasts
CPT/HCPCS: 77062; G0279

== ENCOUNTER 2024-07-15 13:37 | Oncology outpatient (recurring) (ONCR) | payer MEDICARE, OTHER, SELFPAY | END 2024-07-31 23:59 | disposition home or self-care (01) | PROVIDERS: PCP Internal Medicine; Visit Provider Internal Medicine | DX: C50.811 Malignant neoplasm of overlapping sites of right female breast (principal); Z17.0 Estrogen receptor positive status [ER+]; Z87.891 Personal history of nicotine dependence; Z92.3 Personal history of irradiation; Z79.811 Long term (current) use of aromatase inhibitors | CPT/HCPCS: 99213 ==

== ENCOUNTER 2024-10-30 07:55 | Oncology outpatient (recurring) (ONCR) | payer MEDICARE, OTHER, SELFPAY ==
[2024-10-30 08:22] LABS: Basophils # 0.1 10^3/uL (0.0-0.1); Basophils % 1.2 %; Eosinophils # 0.3 10^3/uL (0.0-0.8); Eosinophils % 3.9 %; Hematocrit 43.8 % (36-47); Lymphocytes # 1.6 10^3/uL (0.8-4.8); Lymphocytes % 24.2 %; Mean Corpuscular Hemoglobin 29.9 pg (27-33); Mean Corpuscular Volume 87.8 fl (85-98); Mean Platelet Volume 9.2 fL (7.4-10.4); Monocytes # 0.6 10^3/uL (0.2-0.9); Monocytes % 8.9 %; Neutrophils # 4.06 10^3/uL (1.8-7.7); Neutrophils % 61.5 %; Nucleated Red Blood Cells % 0 %; Platelet Count 298 10^3/cmm (157-399); Red Blood Count 4.99 10^6/uL (3.85-5.65); Red Cell Distribution Width 12.6 % (12.1-15.1); White Blood Count 6.61 10^3/uL (3.29-11.43)
[2024-10-30 08:42] LABS: Alanine Aminotransferase 13 U/L (0-33); Albumin Level 4.2 g/dL (3.5-5.2); Alkaline Phosphatase 90 U/L (35-105); Aspartate Amino Transferase 18 U/L (0-32); Blood Urea Nitrogen 12 mg/dL (8-23); Calcium 9.8 mg/dL (8.5-10.5); Carbon Dioxide 29 mmol/L (22-29); Chloride 101 mmol/L (98-107); Globulin 3.2 g/dL (1.3-4.6); Glucose 95 mg/dL (65-115); Osmolality Calculated 290 mOsm/kg (285-295); Sodium 140 mmol/L (136-145); Total Bilirubin 0.4 mg/dL (0.15-1.2); Total Protein 7.4 g/dL (6.6-8.7)
[2024-10-30 09:16] LABS: Anion Gap 13.6 (5-19); Lactate Dehydrogenase 183 U/L (135-214); Potassium 3.6 mmol/L (3.5-5.1)
[2024-10-30 11:59] LABS: 25 Hydroxy Vitamin D 21 ng/mL (30-100)
== END 2024-11-28 23:59 | disposition home or self-care (01) ==
PROVIDERS: Nurse Practitioner Family; PCP Internal Medicine; Visit Provider Internal Medicine
DX: C50.811 Malignant neoplasm of overlapping sites of right female breast (principal); Z17.0 Estrogen receptor positive status [ER+]; Z79.899 Other long term (current) drug therapy; Z87.891 Personal history of nicotine dependence; R03.0 Elevated blood-pressure reading, without diagnosis of hypertension; Z92.3 Personal history of irradiation
CPT/HCPCS: 36415; 80053; 82306; 83615; 85025; 99214

== ENCOUNTER 2025-01-21 12:27 | Oncology outpatient (recurring) (ONCR) | payer MEDICARE, OTHER, SELFPAY ==
[2025-01-21 12:53] LABS: Hematocrit 41.9 % (36-47); Hemoglobin 14.70 g/dL (11.27-16.99); Mean Corpuscular HGB Conc 35.1 g/dL (30-55); Mean Corpuscular Hemoglobin 30.9 pg (27-33); Mean Corpuscular Volume 88.0 fl (85-98); Nucleated Red Blood Cells % 0 %; Platelet Count 280 10^3/cmm (157-399); Red Blood Count 4.76 10^6/uL (3.85-5.65); White Blood Count 6.87 10^3/uL (3.29-11.43)
[2025-01-21 13:17] LABS: Alanine Aminotransferase 11 U/L (0-33); Albumin Level 4.1 g/dL (3.5-5.2); Alkaline Phosphatase 96 U/L (35-105); Anion Gap 13.7 (5-19); Aspartate Amino Transferase 14 U/L (0-32); Blood Urea Nitrogen 15 mg/dL (8-23); Calcium 9.4 mg/dL (8.5-10.5); Carbon Dioxide 29 mmol/L (22-29); Chloride 102 mmol/L (98-107); Creatinine Clr Calc Pharmacy 68.1831; Globulin 2.7 g/dL (1.3-4.6); Glucose 98 mg/dL (65-115); Osmolality Calculated 293 mOsm/kg (285-295); Potassium 3.7 mmol/L (3.5-5.1); Sodium 141 mmol/L (136-145); Total Protein 6.8 g/dL (6.6-8.7)
== END 2025-01-28 23:59 | disposition home or self-care (01) ==
PROVIDERS: PCP Internal Medicine; Visit Provider Internal Medicine
DX: C50.811 Malignant neoplasm of overlapping sites of right female breast (principal); Z17.0 Estrogen receptor positive status [ER+]; Z79.899 Other long term (current) drug therapy; Z87.891 Personal history of nicotine dependence; Z92.3 Personal history of irradiation; Z92.21 Personal history of antineoplastic chemotherapy
CPT/HCPCS: 36415; 80053; 83615; 85025; 99213

== ENCOUNTER 2025-03-17 13:30 | Outpatient (CLI) | payer MEDICARE, OTHER, SELFPAY ==
--- NOTE | 2025-03-17 13:36 | MR_ITS ---
WS: [id number] MRI HEAD WITHOUT CONTRAST TECHNIQUE: Sagittal T1, T2 axial, T2 axial FLAIR, axial and coronal T1 images, axial susceptibility weighted imaging, axial diffusion weighted images, and coronal T2 images were obtained. CLINICAL INFORMATION: MENTAL STATUS TRANSIENT ALTERATION COMPARISON: None. FINDINGS: No evidence of restricted diffusion to suggest acute ischemia. Mild small vessel changes. Moderate parenchymal volume loss. Normal posterior fossa. Normal vascular flow voids at the skull base. No extra-axial fluid collections. Paranasal sinuses are well aerated. Mastoid air cells are well aerated. No hemosiderin on the susceptibility weighted images. Normal optic chiasm and pituitary infundibulum. Mild symmetric atrophy temporal lobes and hippocampal formations. No signal abnormalities in the mesial temporal lobes. MR/MR head wo con* [id number] IMPRESSION: 1. No evidence of restricted diffusion to suggest acute ischemia. 2. Mild small vessel changes. Moderate parenchymal volume loss. 3. No hemosiderin on susceptibility-weighted images. 4. No other suspicious findings.
== END 2025-03-17 13:31 | disposition home or self-care (01) ==
LOC: RAD 13:31
PROVIDERS: PCP Internal Medicine; Visit Provider Internal Medicine
DX: R40.4 Transient alteration of awareness (principal); Z85.3 Personal history of malignant neoplasm of breast; G47.50 Parasomnia, unspecified
CPT/HCPCS: 70551